=== PATIENT | female | born 1975 | race Caucasian/White ===

== ENCOUNTER 2024-06-24 13:35 | Emergency (ER) | payer OTHER ==
--- OUTSIDE RECORDS SUMMARY | 2024-06-24 13:39 | XMS REPORT | Continuity of Care Document ---
Author Name Unknown Address [address] [place] [address] Organization [facility] [place] Address [address] [place] [address] Care Team Providers Care Blackener Name Role Phone Jomar HILL, Jeanne Primary Care Physician [phone] SHAW COONEY Attending Clinician Unavailable SHAW COONEY Attending Clinician Unavailable ALEIDA ROBERTS Attending Clinician Unavailable ALEIDA ROBERTS Attending Clinician Unavailable Pcp-Lab Attending Clinician Unavailable [email or web address] Attending Clinician Unavaildeewy Gutiérrez NP, José Miguel Bacon Attending Clinician JACEY DAVENPORT M.D. Attending Clinician Unavaila CHATA Curiel APRN Attending Clinician Unavail MIRZA Haider M.D. Attending Clinician UnavailJOCELYN Harrington M.D. Attending Clinician Unavailable EDWARD LACKEY M.D. Attending Clinician Unavaildewey tejada [email or web address] Admitting Clinician Unavaildewey tejada Payers Payer Name Policy Type Policy Number Effective Date Expirati on Date Source [facility] [id number] 00:00:00 [facility] [id number] [id number] 00:00:00 Problems Condition Name Condition Details Condition Category Status Onset Date Resolution Date Last Treatment Date Treating Clinician Comments Source Hypothyroi dism due to Brittaney' s thyroiditi s Hypothyroi dism due to Brittaney' s thyroiditi s Disease Active 06-15 00:00: 00 [facility] Lumbar pain Lumbar pain Problem Active [facility] Pain of left femur Pain of left femur Problem Active [facility] Closed fracture of left ankle, initial encounter Closed fracture of left ankle, initial encounter Problem Active [facility] Closed fracture of shaft of left tibia and fibula, initial encounter Closed fracture of shaft of left tibia and fibula, initial encounter Problem Active [facility] Cervical pain Cervical pain Problem Active [facility] Ankle pain, left Ankle pain, left Problem Active [facility] Closed fracture of sacrum with routine healing, unspecifie d portion of sacrum, subsequent encounter Closed fracture of sacrum with routine healing, unspecifie d portion of sacrum, subsequent encounter Problem Active [facility] Closed fracture of spinous process of lumbar vertebra with routine healing, subsequent encounter Closed fracture of spinous process of lumbar vertebra with routine healing, subsequent encounter Problem Active [facility] Arthrodesi s status Arthrodesi s status Problem Active [facility] History of thyroid disease History of thyroid disease Problem Resolve d [facility] Allergies, Adverse Reactions, Alerts Allergy Name Allergy Type Status Severity Reaction(s) Onset Date Inactive Date Treating Clinician Comments Source NO KNOWN ALLERGIE S Drug Class Active [facility] Family History Family Member Diagnosis Comments Start Date Stop Date Sourc e Unknown Family Member Family history of hypertension Family History [facility] Social History Social Habit Start Date Stop Date Quantity Comments Source History of tobacco use Cigarette Smoker [facility] Exposure to SARS-CoV-2 (event) Not sure [facility] beverage intake 2023-07-16 00:00:00 2023-07-16 00:00:00 1.71 /d [facility] History of Social function 2023-07-16 00:00:00 2023-07-16 00:00:00 [facility] Cigarettes smoked current (pack per day) - Reported 2023-07-14 00:00:00 2023-07-14 00:00:00 [facility] Cigarette pack-years 2023-07-14 00:00:00 2023-07-14 00:00:00 [facility] Tobacco use and exposure 2023-07-14 00:00:00 2023-07-14 00:00:00 Smokeless tobacco non-user [facility] Alcohol intake 2018-01-06 00:00:00 2018-01-06 00:00:00 Current drinker of alcohol (finding) [facility] Alcohol Comment 2017-06-11 00:00:00 2017-06-11 00:00:00 4-5 x 3 times weekly [facility] Sex assigned at 1975 00:00:00 1975 00:00:00 [facility] Smoking Status Start Date Stop Date Source Ex-smoker (finding) MAYDA cash Smokes tobacco daily 2023-07-14 00:00:00 [facility] Medications Ordered Medication Name Filled Medication Name Start Date Stop Date Current Medication? Ordering Clinician Indication Dosage Frequency Signature (SIG) Comments Components Source levothyroxi ne 150 mcg tablet 2023-02 00:00: 00 Yes mcg Rick Tate TAKE 1 TABLET EVERY MORNING. 2022-02 00:00: 00 Yes 150 Rick Tate TAKE 1 TABLET AT BEDTIME. 2022-02 00:00: 00 Yes 10 Rick Tate TAKE 1 TABLET DAILY. 2022-02 00:00: 00 Yes 90 Rick Tate ketorolac (TORADOL) injection 30 mg 08-25 02:15: 00 08-25 02:23 :00 No 30mg 30 mg, Slow IV Push, ONCE, 1 dose, Queenie 08/24/20 at 2115, Routine
manager membership approving Restricted medication : JOSÉ MIGUEL GUTIÉRREZ [facility] acetaminoph en (TYLENOL) tablet 650 mg 08-25 02:15: 00 08-25 02:22 :00 No 650mg 650 mg, Oral, ONCE, 1 dose, Queenie 08/24/20 at 2115, GRZEGORZ [facility] cefTRIAXone (ROCEPHIN) 1,000 mg in NaCl 0.9% (NS) 50 mL MINI-BAG 08-25 02:15: 00 08-25 02:54 :00 No 1000mg 1,000 mg, IV Piggyback, ONCE, 1 dose, Queenie 08/24/20 at 2115, 50 mL
Reas on for Anti-Infec tive: Documented Infection< br>Documen razia Infection Site: Urine
D uration of Therapy: 7 days [facility] NaCl 0.9% (NS) bolus infusion 500 mL 08-25 01:15: 00 08-25 04:16 :00 No 500mL at 999 mL/hr, 500 mL, IV Infusion, ONCE, 1 dose, Queenie 08/24/20 at 2015, GRZEGORZ [facility] ondansetron (ZOFRAN ODT) 4 mg disintegrat ing tablet 08-24 00:00: 00 Yes [id number] 4mg Take 1 tablet by mouth every 8 (eight) hours as needed for Nausea and Vomiting (N/V). [facility] cefpodoxime 200 mg tablet 08-24 00:00: 00 09-01 04:59 :00 No [id number] 200mg Take 1 tablet by mouth 2 (two) times daily for 7 days. [facility] tramadol 50 mg tablet 05-09 00:00: 00 Yes 1mg Rick Tate cefixime 200 mg/5 mL oral suspension 05-09 00:00: 00 Yes 1mg/5 mL Rick Tate traMADol HCl - 50 MG Oral Tablet traMADol HCl - 50 MG Oral Tablet 11-09 00:00: 00 Yes JOAN ESPAÑA P.A. 1 Q6H TAKE 1 TABLET EVERY 6 HOURS PRN pain [facility] Acetaminoph en-Codeine #3 300-30 MG Oral Tablet Acetaminoph en-Codeine #3 300-30 MG Oral Tablet 10-24 00:00: 00 Yes JOAN ESPAÑA P.A. 1 Q6H TAKE 1 TABLET EVERY 6 HOURS PRN pain [facility] Acetaminoph en-Codeine #3 300-30 MG Oral Tablet Acetaminoph en-Codeine #3 300-30 MG Oral Tablet 09-28 00:00: 00 Yes JOAN ESPAÑA P.A. 1 Q6H TAKE 1 TABLET EVERY 6 HOURS PRN pain [facility] traMADOL (ULTRAM) 50 mg tablet 2017-02 00:00: 00 Yes 50mg Take 1 tablet by mouth every 6 (six) hours as needed for Pain (scale 4-6). [facility] cyclobenzap rine 5 mg tablet 2017-02 1-13 00:00: 00 08-24 00:00 :00 No 5mg Take 1 tablet by mouth 3 (three) times daily. [facility] FLUTICASONE 50 mcg/actuati on nasal spray 2017-02 0-25 00:00: 00 08-24 00:00 :00 No [id number] 2{spray } USE 2 SPRAYS IN EACH NOSTRIL DAILY. [facility] Thyroid, Pork, (ARMOUR THYROID) 120 mg tablet 06-15 00:00: 00 Yes [id number] Take 1 tab PO daily. [facility] azelastine 137 mcg (0.1 %) nasal spray 06-11 00:00: 00 08-24 00:00 :00 No [id number] 1{spray } Use 1 [place] in each nostril 2 (two) times daily. Use in each nostril as directed [facility] Thyroid 90 mg tablet 3-14 00:00: 00 Yes 1mg Rick Tate [facility] Thyroid 90 mg tablet 2-02 00:00: 00 Yes 1mg Rick Tate [employer] Thyroid 90 MG Oral Tablet [employer] Thyroid 90 MG Oral Tablet Yes [facility] Adderall TABS Adderall TABS Yes [facility] Vital Signs Vital Name Observation Time Observation Value Comments S ource Body temperature 2023-07-14 19:41:00 36.22 [facility] Body height 2023-07-14 19:41:00 157.5 cm [facility] Systolic blood pressure 2020-08-25 03:24:16 102 mm[Hg] [facility] Diastolic blood pressure 2020-08-25 03:24:16 64 mm[Hg] [facility] Heart rate 2020-08-25 03:24:16 71 /min [facility] Body temperature 2020-08-25 03:24:16 37.06 [facility] Respiratory rate 2020-08-25 03:24:16 19 /min [facility] Oxygen saturation in Arterial blood by Pulse oximetry 2020-08-25 03:24:16 99 /min [facility] Body height 2020-08-24 22:55:00 157.5 cm [facility] Body weight 2020-08-24 22:55:00 47.401 kg [facility] BMI 2020-08-24 22:55:00 19.11 kg/m2 [facility] BP Systolic 2024-04-06 10:51:00 110 mm[Hg] Step hen F [place] BP Diastolic 2024-04-06 10:51:00 88 mm[Hg] Valeriano phen F [place] Weight Measured 2024-04-06 10:51:00 139.00 pounds Rick F B[place] Height Measured 2024-04-06 10:51:00 62.00 inches Rick F [place] Body Temperature 2024-04-06 10:51:00 97.80 degrees Rick F [place] Heart Rate 2024-04-06 10:51:00 73.00 /min La en F [place] Respiratory Rate 2024-04-06 10:51:00 18.00 /min Rick F Bebeto BP Diastolic 2023-12-03 13:47:00 68 mm[Hg] Valeriano phen F [place] Weight Measured 2023-12-03 13:47:00 142.50 pounds Rick F Bebeto Height Measured 2023-12-03 13:47:00 62.00 inches Rick F Beb[place] Body Temperature 2023-12-03 13:47:00 97.90 degrees Rick F Bebeto Heart Rate 2023-12-03 13:47:00 73.00 /min La en F [place] Respiratory Rate 2023-12-03 13:47:00 17.00 /min Rick F Bebeto BP Systolic 2023-12-03 13:47:00 114 mm[Hg] Step hen F [place]eto Heart Rate 2023-12-02 17:10:00 72.00 /min La en F [place] Respiratory Rate 2023-12-02 17:10:00 16.00 /min Rick F Bebeto BP Systolic 2023-12-02 17:10:00 114 mm[Hg] Step hen F [place]eb[place] BP Diastolic 2023-12-02 17:10:00 68 mm[Hg] Valeriano phen F [place]ebeto Weight Measured 2023-12-02 17:10:00 142.60 pounds Rick F Bebeto Height Measured 2023-12-02 17:10:00 62.00 inches Rick F Bebeto Body Temperature 2023-12-02 17:10:00 98.20 degrees Rick F Bebeto BP Systolic 2022-12-13 16:05:00 132 mm[Hg] Step hen F Bebeto BP Diastolic 2022-12-13 16:05:00 85 mm[Hg] Valeriano phen F Bebeto Weight Measured 2022-12-13 16:05:00 126.40 pounds Rick F Bebeto Height Measured 2022-12-13 16:05:00 62.00 inches Rick F Bebeto Body Temperature 2022-12-13 16:05:00 98.20 degrees Rick F Bebeto Heart Rate 2022-12-13 16:05:00 75.00 /min La en F Bebeto Respiratory Rate 2022-12-13 16:05:00 19.00 /min Rick F Bebeto BP Systolic 2020-05-09 11:17:00 105 mm[Hg] Step hen F Bebeto BP Diastolic 2020-05-09 11:17:00 74 mm[Hg] Valeriano phen F Bebeto Weight Measured 2020-05-09 11:17:00 109.80 pounds Rick F Bebeto Height Measured 2020-05-09 11:17:00 62.00 inches Rick F Bebeto Body Temperature 2020-05-09 11:17:00 Rick F Bebeto Heart Rate 2020-05-09 11:17:00 83.00 /min La en F Bebeto Respiratory Rate 2020-05-09 11:17:00 17.00 /min Rick F Bebeto Body height 2019-10-27 11:22:00 62 [in_us] [facility] Weight 2019-10-27 11:22:00 114 [lb_av] [facility] Body mass index (BMI) [Ratio] 2019-10-27 11:22:00 20.85 kg/m2 [facility] BP Systolic 2017-03-18 15:23:00 127 mm[Hg] Step hen F Bebeto BP Diastolic 2017-03-18 15:23:00 73 mm[Hg] Valeriano phen F Bebeto Weight Measured 2017-03-18 15:23:00 117.60 pounds Rick Tate Height Measured 2017-03-18 15:23:00 62.00 inches Rick Tate Body Temperature 2017-03-18 15:23:00 98.60 degrees Rick Tate Heart Rate 2017-03-18 15:23:00 98.00 /min La Tate Respiratory Rate 2017-03-18 15:23:00 Rick Tate Procedures Procedure Date / Time Performed Performing Clinician Source ASPIRATE OR ABSCESS CULTURE(AEROBIC/ANAEROB IC) 2023-07-14 22:33:00 Aleida Roberts [facility] FUNGUS (ROUTINE) CULTURE 2023-07-14 22:33:00 Aleida Roberts [facility] XR SACRUM AND COCCYX 2023-07-14 20:13:57 Violeta Roberts [facility] BASIC METABOLIC PANEL (NA, K, CL, CO2, GLUCOSE, BUN, CREATININE, CA) 2020-08-25 01:39:00 José Miguel Gutiérrez [facility] CBC WITH DIFF 2020-08-25 01:39:00 José Miguel Gutiérrez [facility] URINALYSIS 2020-08-24 23:21:00 José Miguel Gutiérrez [facility] NOTICE OF PRIVACY PRACTICES 2020-08-24 22:49:02 Doctor Unassigned, [place] [facility] CONSENT/REFUSAL FOR DIAGNOSIS AND TREATMENT 2020-08-24 22:48:26 Doctor Unassigned, [place] [facility] [U] XRAY PELVIS MIN 3 VWS [id number] 2019-11-16 00:00:00 [facility] [U] XRAY SPINE LUMBOSACRAL 2 OR 3 VWS [id number] 2019-10-27 00:00:00 [facility] [U] XRAY ANKLE MIN 3 VWS LEFT [id number] 2019-10-27 00:00:00 [facility] [U] XRAY SPINE CERVICAL 2 OR 3 VWS [id number] 2019-10-27 00:00:00 [facility] [U] XRAY PELVIS MIN 3 VWS [id number] 2019-10-21 00:00:00 [facility] [U] XRAY FEMUR 2 VWS LEFT [id number] 2019-10-18 00:00:00 [facility] [U] XRAY TIBIA FIBULA 2 VWS LEFT [id number] 2019-10-18 00:00:00 [facility] Post Op Promis 29 Survey 2019-10-05 00:00:00 [facility] Post Op Promis 29 Survey 2019-09-30 00:00:00 [facility] [U] XRAY SPINE LUMBOSACRAL 2 OR 3 VWS [id number] 2019-09-29 00:00:00 [facility] [U] XRAY SPINE CERVICAL 2 OR 3 VWS [id number] 2019-09-29 00:00:00 [facility] Post Op Promis 29 Survey 2019-09-24 00:00:00 [facility] Post Op Promis 29 Survey 2019-09-23 00:00:00 [facility] XRAY Spine lumbar AP lateral [id number] 2019-09-22 00:00:00 [facility] History of Hysterectomy [facility] Encounters Start Date/Time End Date/Time Encounter Type Admission Type Attending Clinicians Care Facility Care Department Encounter ID Source 2020-12-25 05:28:30 Emergency [facility] [id number] [facility] 2024-04-06 10:36:03 2024-04-06 10:36:03 Outpatient [facility] [id number] Rick Tate 2024-04-06 00:00:00 2024-04-06 00:00:00 Outpatient Visit [facility] [id number] Rick Tate 2023-12-18 10:37:34 2023-12-18 10:37:34 Outpatient [facility] [id number] Rick Tate 2023-12-08 15:40:50 2023-12-08 15:40:50 Outpatient [facility] [id number] Rick Tate 2023-12-03 13:39:00 2023-12-03 13:39:00 Outpatient [facility] [id number] Rick Tate 2023-12-02 17:06:14 2023-12-02 17:06:14 Outpatient [facility] SFA [id number] Rick Tate 2023-12-02 00:00:00 2023-12-02 00:00:00 Outpatient Visit [facility] [id number] Rick Tate 2023-09-03 00:00:00 2023-09-03 00:00:00 Outpatient Marce ALEIDA ROBERTS [facility]LEIDA [facility] [id number] [facility] 2023-08-07 10:25:00 2023-08-07 10:25:00 Outpatient Marce ALEIDA ROBERTS ALEIDA [facility] [id number] [facility] 2023-07-22 00:00:00 2023-07-22 10:25:36 Telephone AmberAleida [facility] [id number] [id number] [facility] 2023-07-16 00:00:00 2023-07-16 16:38:34 [facility] [id number] [id number] [id number] [facility] 2023-07-14 15:01:10 2023-07-14 23:59:00 Outpatient Marce ALEIDA ROBERTS ALEIDA [facility] [id number] [facility] 2023-07-14 15:01:10 2023-07-14 23:59:00 Hospital Encounter AmberAleida gonzalez [facility] [id number] [id number] [id number] [id number] [facility] 2023-07-14 16:15:00 2023-07-14 16:30:00 Operative Supervisor [facility] [id number] [id number] [id number] [id number] [facility] 2023-07-14 13:20:00 2023-07-14 16:12:08 Office Visit Aleida Roberts [facility] 1..840.114 350.1.13.10 [id number] [id number] [facility] 2023-07-14 13:20:00 2023-07-14 13:20:00 [facility] [id number] 2023-07-14 13:20:00 2023-07-14 13:20:00 Outpatient ALEIDA GRUBBS [facility] [id number] [facility] 2022-12-26 16:21:32 2022-12-26 16:21:32 Outpatient [facility] [id number] Rick Keira Bebeto 2022-12-24 00:00:00 2022-12-24 00:00:00 Outpatient GC_GCBZW_Ka diyala_S PRIV PRIV [id number] [facility] 2022-12-23 00:00:00 2022-12-23 00:00:00 Outpatient GC_GCBZW_Ka diyala_S PRIV PRIV [id number] [facility] 2022-12-13 15:55:53 2022-12-13 15:55:53 Outpatient [facility] [id number] Rick Keira Bebeto 2022-12-11 13:12:11 2022-12-11 13:12:11 Outpatient [facility] [id number] Rick Keira Bebeto 2020-08-24 17:56:00 2020-08-24 22:34:00 Emergency José Miguel Gutiérrez [facility] 1..840.114 [id number] [id number] [id number] [facility] 2019-11-24 07:45:00 2019-11-24 07:45:00 Appointmen t; JACEY DAVENPORT M.D. PRASARN, MARK, M.D. [facility] [id number] [place] [facility] 2019-10-27 10:00:00 2019-10-27 10:00:00 Appointmen t; CHATA MENA APRN COCKERHAM, AMY, APRN [facility] [id number] [facility] 2019-10-27 09:45:00 2019-10-27 09:45:00 Appointmen t; MIRZA URIAS M.D. CHOO, ANDREW, M.D. [facility] Orthopedics Trauma [facility] [id number] [place] [facility] 2019-10-27 07:45:00 2019-10-27 07:45:00 Appointmen t; JACEY DAVENPORT M.D. PRASARN, MARK, M.D. [facility] Orthopedics at [facility] [id number] [facility] 2019-09-29 10:00:00 2019-09-29 10:00:00 Appointmen t; JACEY DAVENPORT M.D. PRASARN, MARK, M.D. [facility] Orthopedics at [facility] [id number] [facility] 2019-09-29 08:30:00 2019-09-29 08:30:00 Appointmen t; CHATA MENA APRN COCKERHAM, AMY, APRN [facility] [id number] [facility] 2019-09-29 07:45:00 2019-09-29 07:45:00 Appointmen t; MIRZA URIAS M.D. CHOO, ANDREW, M.D. [facility] Orthopedics Trauma [facility] [id number] [facility] 2019-09-09 07:00:00 2019-09-09 07:00:00 Appointmen t; JOCELYN SYED M.D. MUNZ, JOHN, M.D. [facility] [id number] [facility] 2019-08-31 08:00:00 2019-08-31 08:00:00 Appointmen t; MIRZA URIAS M.D. CHOO, ANDREW, M.D. [facility] [id number] [facility] 2019-08-30 07:00:00 2019-08-30 07:00:00 Appointmen t; EDWARD LACKEY M.D. EDWARD LACKEY M.D. [facility]TP [id number] [facility] 2019-08-29 07:00:00 2019-08-29 07:00:00 Appointmen ronna; MIRZA URIAS M.D. CHOO, ANDREW, M.D. [facility] [id number] [facility] 2015-10-11 11:30:00 2015-10-11 11:30:00 [id number] Daniel Escobar Results Test Description Test Time Test Comments Results Result Co mments Source Rick Crockett [place]IP[place] PANEL [ADDED]2023-12-04 00:00:00* Test Item Value Reference Range Interpretation Comme nts CHOLESTEROL (test code = 2210) 230 MG/DL TRIGLYCERIDES (test code = 2232) 131 MG/DL HDL CHOLESTEROL (test code = 2220) 46 MG/DL CALC LDL CHOL (test code = 2237) 158 MG/DL RISK RATIO LDL/HDL (test cod e = 2238) 3.43 RATIO Rick TateCOMPREHENSIVE METABOLIC PANEL [ADDED]2023-12-04 00:00:00* Test Item Value Reference Range Interpretation Comme nts GLUCOSE (test code = 2217) 111 MG/DL BUN (test code = 2208) 12 MG/DL CREATININE (test code = 2214) 0.66 MG/DL eGFR (2020 CKD-EPI) (test code = 50903) 107 ML/MIN/1.73 CALC BUN/CREAT (test code = 2235) 18 RATIO SODIUM (test code = 2231) 141 MEQ/L POTASSIUM (test code = 2228) 5.1 MEQ/L CHLORIDE (test code = 2215) 102 MEQ/L CARBON DIOXIDE (test code = 2206) 28 MEQ/L CALCIUM (test code = 2209) 9.9 MG/DL PROTEIN, TOTAL (test code = 2229) 7.7 G/DL ALBUMIN (test code = 2201) 4.1 G/DL CALC GLOBULIN (test code = 2240) 3.6 G/DL CALC A/G RATIO (test code = 2234) 1.1 RATIO BILIRUBIN, TOTAL (test code = 2207) <0.2 MG/DL ALKALINE PHOSPHATASE (test code = 2204) 134 U/L AST (test code = 2218) 81 U/L ALT (test code = 2219) 102 U/L Rick Rodas, THIRD [id number] 00:00:00* Test Item Value Reference Range Interpretation Comme nts TSH, THIRD GENERATION (test code = 2821) 0.042 UIU/ML Rick TateLIPID PANEL [ADDED]2023-12-04 00:00:00* Test Item Value Reference Range Interpretation Comme nts CHOLESTEROL (test code = 2210) 230 MG/DL TRIGLYCERIDES (test code = 2232) 131 MG/DL HDL CHOLESTEROL (test code = 2220) 46 MG/DL CALC LDL CHOL (test code = 2237) 158 MG/DL RISK RATIO LDL/HDL (test cod e = 2238) 3.43 RATIO Rick TateCOMPREHENSIVE METABOLIC PANEL [ADDED]2023-12-04 00:00:00* Test Item Value Reference Range Interpretation Comme nts GLUCOSE (test code = 2217) 111 MG/DL BUN (test code = 2208) 12 MG/DL CREATININE (test code = 2214) 0.66 MG/DL eGFR (2020 CKD-EPI) (test code = 31061) 107 ML/MIN/1.73 CALC BUN/CREAT (test code = 2235) 18 RATIO SODIUM (test code = 2231) 141 MEQ/L POTASSIUM (test code = 2228) 5.1 MEQ/L CHLORIDE (test code = 2215) 102 MEQ/L CARBON DIOXIDE (test code = 2206) 28 MEQ/L CALCIUM (test code = 2209) 9.9 MG/DL PROTEIN, TOTAL (test code = 2229) 7.7 G/DL ALBUMIN (test code = 2201) 4.1 G/DL CALC GLOBULIN (test code = 2240) 3.6 G/DL CALC A/G RATIO (test code = 2234) 1.1 RATIO BILIRUBIN, TOTAL (test code = 2207) <0.2 MG/DL ALKALINE PHOSPHATASE (test code = 2204) 134 U/L AST (test code = 2218) 81 U/L ALT (test code = 2219) 102 U/L Rick TateXR SACRUM AND [id number] 20:45:22XR SACRUM AND COCCYX HISTORY: Female 48 years h/o hardware placement, has drainage and openwound on the scar COMPARISON: None FINDINGS: Plain radiographs are relatively insensitive for the evaluationof softtissue abnormalities. Postsurgical changes of L4-L5 posterior spinal fusion and SI jointankylosis are noted. Perihardware lucencies are seen about the right [id number] about the tips of the screws spanning both SI joints. There also age indeterminate fractures of the right inferior and superiorpubic rami.[facility], THIRD GENERATION 2022-12-16 01:24:28* Test Item Value Reference Range Interpretation Comme nts TSH, THIRD GENERATION (test code = 2821) >100.000 UIU/ML 0.400-4.100 H UNLESS OTHERWISE INDICATED, ALL TESTING PERFORMED AT [facility] [address] [place] [address] PLANT CHANGER: BAM INGRAM M.D. CLIA NUMBER [id number] [place] [id number] LIPID [id number] 01:23:07* Test Item Value Reference Range Interpretation Comme nts CHOLESTEROL (test code = 2210) 291 MG/DL <200 H TRIGLYCERIDES (test code = 2232) 189 MG/DL <150 H HDL CHOLESTEROL (test code = 2220) 56 MG/DL >39 CALC LDL CHOL (test code = 2237) 199 MG/DL <100 H NOTE: CALCULATED LDL IS BASED ON CESILIA-RETANA METHOD WHICHINCLUDES ADJUSTABLE TRIGLYCERIDE:VLDL CHOLESTEROL RATIO.THIS FACTOR VARIES BY MEASURED TRIGLYCERIDE AND NON-HDLCHOLESTEROL CONCENTRATIONS WITH INCREASED CALCULATED LDL SEENIN HIGHER TRIGLYCERIDE OR LOWER NON-HDL SPECIMENS. FOR MOREINFORMATION, SEE CLIENT ANNOUNCEMENT AT [email or web address] RISK RATIO LDL/HDL (test code = 2238) 3.55 RATIO <3.22 H COMPREHENSIVE METABOLIC [id number] 01:23:07* Test Item Value Reference Range Interpretation Comme nts GLUCOSE (test code = 2217) 94 MG/DL 70-99 BUN (test code = 2208) 14 MG/DL 6-20 CREATININE (test code = 2214) 0.81 MG/DL 0.60-1.30 eGFR (2020 CKD-EPI) (test co de = 52370) 89 ML/MIN/1.73 >60 CALC BUN/CREAT (test code = 2235) 17 RATIO 6-28 SODIUM (test code = 2231) 138 MEQ/L 133-146 POTASSIUM (test code = 2228) 4.2 MEQ/L 3.5-5.4 CHLORIDE (test code = 2215) 99 MEQ/L 95-107 CARBON DIOXIDE (test code = 2206) 27 MEQ/L 19-31 CALCIUM (test code = 2209) 9.7 MG/DL 8.5-10.5 PROTEIN, TOTAL (test code = 2229) 8.4 G/DL 6.1-8.3 H ALBUMIN (test code = 2201) 4.7 G/DL 3.5-5.2 CALC GLOBULIN (test code = 2240) 3.7 G/DL 1.9-3.7 CALC A/G RATIO (test code = 2234) 1.3 RATIO 1.0-2.6 BILIRUBIN, TOTAL (test code = 2207) <0.2 MG/DL <=1.2 ALKALINE PHOSPHATASE (test code = 2204) 103 U/L 40-125 AST (test code = 2218) 19 U/L 9-40 ALT (test code = 2219) 27 U/L 5-40 LIPID [id number] 00:00:00* Test Item Value Reference Range Interpretation Comme nts CHOLESTEROL (test code = 2210) 291 MG/DL TRIGLYCERIDES (test code = 2232) 189 MG/DL HDL CHOLESTEROL (test code = 2220) 56 MG/DL CALC LDL CHOL (test code = 2237) 199 MG/DL RISK RATIO LDL/HDL (test cod e = 2238) 3.55 RATIO Rick F AustinCOMPREHENSIVE METABOLIC [id number] 00:00:00* Test Item Value Reference Range Interpretation Comme nts GLUCOSE (test code = 2217) 94 MG/DL BUN (test code = 2208) 14 MG/DL CREATININE (test code = 2214) 0.81 MG/DL eGFR (2020 CKD-EPI) (test co de = 46127) 89 ML/MIN/1.73 CALC BUN/CREAT (test code = 2235) 17 RATIO SODIUM (test code = 2231) 138 MEQ/L POTASSIUM (test code = 2228) 4.2 MEQ/L CHLORIDE (test code = 2215) 99 MEQ/L CARBON DIOXIDE (test code = 2206) 27 MEQ/L CALCIUM (test code = 2209) 9.7 MG/DL PROTEIN, TOTAL (test code = 2229) 8.4 G/DL ALBUMIN (test code = 2201) 4.7 G/DL CALC GLOBULIN (test code = 2240) 3.7 G/DL CALC A/G RATIO (test code = 2234) 1.3 RATIO BILIRUBIN, TOTAL (test code = 2207) <0.2 MG/DL ALKALINE PHOSPHATASE (test code = 2204) 103 U/L AST (test code = 2218) 19 U/L ALT (test code = 2219) 27 U/L Rick TateTSH, THIRD [id number] 00:00:00* Test Item Value Reference Range Interpretation Comme nts TSH, THIRD GENERATION (test code = 2821) >100.000 UIU/ML Rick TateLIPID [id number] 00:00:00* Test Item Value Reference Range Interpretation Comme nts CHOLESTEROL (test code = 2210) 291 MG/DL TRIGLYCERIDES (test code = 2232) 189 MG/DL HDL CHOLESTEROL (test code = 2220) 56 MG/DL CALC LDL CHOL (test code = 2237) 199 MG/DL RISK RATIO LDL/HDL (test cod e = 2238) 3.55 RATIO Rick TateCOMPREHENSIVE METABOLIC [id number] 00:00:00* Test Item Value Reference Range Interpretation Comme nts GLUCOSE (test code = 2217) 94 MG/DL BUN (test code = 2208) 14 MG/DL CREATININE (test code = 2214) 0.81 MG/DL eGFR (2020 CKD-EPI) (test co de = 27445) 89 ML/MIN/1.73 CALC BUN/CREAT (test code = 2235) 17 RATIO SODIUM (test code = 2231) 138 MEQ/L POTASSIUM (test code = 2228) 4.2 MEQ/L CHLORIDE (test code = 2215) 99 MEQ/L CARBON DIOXIDE (test code = 2206) 27 MEQ/L CALCIUM (test code = 2209) 9.7 MG/DL PROTEIN, TOTAL (test code = 2229) 8.4 G/DL ALBUMIN (test code = 2201) 4.7 G/DL CALC GLOBULIN (test code = 2240) 3.7 G/DL CALC A/G RATIO (test code = 2234) 1.3 RATIO BILIRUBIN, TOTAL (test code = 2207) <0.2 MG/DL ALKALINE PHOSPHATASE (test code = 2204) 103 U/L AST (test code = 2218) 19 U/L ALT (test code = 2219) 27 U/L Rick Rodas, THIRD [id number] 00:00:00* Test Item Value Reference Range Interpretation Comme nts TSH, THIRD GENERATION (test code = 2821) >100.000 UIU/ML Rick TateBasic Metabolic Panel (NA, K, CL, CO2, GLUCOSE, BUN, CREATININE, CA)2020-08-25 02:09:13* Test Item Value Reference Range Interpretation Comme nts NA (test code = 6611168300) 135 mmol/L 135-145 K (test code = 9200860036) 3.3 mmol/L 3.5-5.0 L CL (test code = 0349767334) 99 mmol/L 98-108 CO2 TOTAL (test code = 3801756327) 24 mmol/L 23-31 AGAP (test code = 4794392464) 2-16 BUN (test code = 0643694233) 11 mg/dL 7-23 GLUCOSE (test code = 2680339135) 175 mg/dL 70-110 H CREATININE (test code = 3378297803) 0.65 mg/dL 0.50-1.04 CALCIUM (test code = 2125529374) 9.7 mg/dL 8.6-10.6 eGFR (test code = 3762915562) mL/min/1.73m2 BRANDON (test code = BRANDON) Association of Glomerular Filtration Rate (GFR) and Staging of Kidney Disease* + --+ --+ ------+| GFR (mL/min/1.73 m2) ?| With Kidney Damage ?| ?Without Kidney Damage+ --------+ --------+ +| ?>90 ?| ?Stage one ?| ? Normal ?+ ---+ ---+ -------+| ?60-89 ?| ?Stage two ?| ? Decreased GFR ? + --+ --+ ------+| ?30-59 ?| ?Stage three ?| ? Stage three ? + --+ --+ ------+| ?15-29 ?| ?Stage four ? | ? Stage four ?+ ---+ ---+ -------+| ?<15 (or dialysis) ? ?| ?Stage five ? | ? Stage five ?+ ---+ ---+ -------+ *Each stage assumes the associated GFR level has been in effect for at least three months. ?Stages 1 to 5, with or without kidney disease, indicate chronic kidney disease. Notes: Determination of stages one and two (with eGFR >59mL/min/1.73 m2) requires estimation of kidney damage for at least three months as defined by structural or functional abnormalities of the kidney, manifested by either:Pathological abnormalities or Markers of kidney damage (including abnormalities in the composition of the blood or urine or abnormalities in imaging tests). Lab Interpretation (test code = 30338-5) Abnormal [facility] with [id number] 01:59:35* Test Item Value Reference Range Interpretation Comme nts WBC (test code = 6690-2) See_Comment [[employer] Education] The system which generated this result transmitted reference range: 4.30 - 11.10 10*3/?L. The reference range was not used to interpret this result as normal/abnormal. RBC (test code = 789-8) See_Comment L [[employer] Education] The system which generated this result transmitted reference range: 3.93 - 5.25 10*6/?L. The reference range was not used to interpret this result as normal/abnormal. HGB (test code = 718-7) 10.8 g/dL 11.6-15.0 L HCT (test code = 4544-3) 31.9 % 35.7-45.2 L MCV (test code = 787-2) 92.5 fL 80.6-95.5 MCH (test code = 785-6) 31.3 pg 25.9-32.8 MCHC (test code = 786-4) 33.9 g/dL 31.6-35.1 RDW-SD (test code = 99011-9) 43.5 fL 39.0-49.9 RDW-CV (test code = 788-0) 12.8 % 12.0-15.5 PLT (test code = 777-3) See_Comment H [Automated messa ge] The system which generated this result transmitted reference range: 166 - 358 10*3/?L. The reference range was not used to interpret this result as normal/abnormal. MPV (test code = 57356-4) 9.8 fL 9.5-12.9 NRBC/100 WBC (test code = 8058448659) See_Comment [Automated [employer]axis ssage] The system which generated this result transmitted reference range: 0.0 - 10.0 /100 WBCs. The reference range was not used to interpret this result as normal/abnormal. NRBC x10^3 (test code = 6442389798) <0.01 See_Comment [Automated messa ge] The system which generated this result transmitted reference range: 10*3/?L. The reference range was not used to interpret this result as normal/abnormal. GRAN MAT (NEUT) % (test code = 770-8) 78.0 % IMM GRAN % (test code = 7425201740) 1.40 % LYMPH % (test code = 736-9) 9.9 % MONO % (test code = 5905-5) 10.0 % EOS % (test code = 713-8) 0.3 % BASO % (test code = 706-2) 0.4 % GRAN MAT x10^3(ANC) (test code = 8389528347) 7.78 10*3/uL 1.88-7.09 H IMM GRAN x10^3 (test code = 0541665953) 0.14 10*3/uL 0.00-0.06 H LYMPH x10^3 (test code = 731-0) 0.99 10*3/uL 1.32-3.29 L MONO x10^3 (test code = 742-7) 1.00 10*3/uL 0.33-0.92 H EOS x10^3 (test code = 711-2) 0.03 10*3/uL 0.03-0.39 BASO x10^3 (test code = 704-7) 0.04 10*3/uL 0.01-0.07 Lab Interpretation (test code = 79464-8) [facility]52:42* Test Item Value Reference Range Interpretation Comme nts APPEARANCE (test code = 3351647611) Clear Clear COLOR (test code = 7170259494) Yellow Yellow PH (test code = 7034807689) 4.8-8.0 SP GRAVITY (test code = 3567866487) 1.003-1.030 GLU U QUAL (test code = 8470070875) Normal Normal BLOOD (test code = 1442325753) Negative Negative KETONES (test code = 5613557015) Negative Negative PROTEIN (test code = 2887-8) Negative Negative UROBILIN (test code = 4463514416) Normal Normal BILIRUBIN (test code = 9728229981) Negative Negative NITRITE (test code = 2459544909) Negative Negative LEUK CHUCK (test code = 9629302439) 75/uL Negative A RBC/HPF (test code = 7202033561) See_Comment [Automated Authernativea ge] The system which generated this result transmitted reference range: 0 - 3 HPF. The reference range was not used to interpret this result as normal/abnormal. WBC/HPF (test code = 8225994838) See_Comment H [Automated Authernativea ge] The system which generated this result transmitted reference range: 0 - 5 HPF. The reference range was not used to interpret this result as normal/abnormal. BACTERIA (test code = 5970008626) Negative Negative MUCOUS (test code = 0695759786) Slight Negative LPF A SQ EPITH (test code = 3722513889) HPF Lab Interpretation (test code = 90951-1) [facility]normal [facility] [id number] 00:00:00* Test Item Value Reference Range Interpretation Comme nts GLUCOSE (test code = 2217) 106 MG/DL BUN (test code = 2208) 15 MG/DL CREATININE (test code = 2214) 0.48 MG/DL eGFR AMER. (test cod e = 08889) 135 ML/MIN/1.73 eGFR NON- AMER. (test code = 13481) 117 ML/MIN/1.73 CALC BUN/CREAT (test code = 2235) 31 RATIO SODIUM (test code = 2231) 134 MEQ/L POTASSIUM (test code = 2228) 5.4 MEQ/L CHLORIDE (test code = 2215) 96 MEQ/L CARBON DIOXIDE (test code = 2206) 28 MEQ/L CALCIUM (test code = 2209) 9.9 MG/DL PROTEIN, TOTAL (test code = 2229) 7.6 G/DL ALBUMIN (test code = 2201) 3.6 G/DL CALC GLOBULIN (test code = 2240) 4.0 G/DL CALC A/G RATIO (test code = 2234) 0.9 RATIO BILIRUBIN, TOTAL (test code = 2207) <0.2 MG/DL ALKALINE PHOSPHATASE (test code = 2204) 385 U/L AST (test code = 2218) 92 U/L ALT (test code = 2219) 103 U/L Rick TateCOMPREHENSIVE METABOLIC [id number] 00:00:00* Test Item Value Reference Range Interpretation Comme nts GLUCOSE (test code = 2217) 106 MG/DL BUN (test code = 2208) 15 MG/DL CREATININE (test code = 2214) 0.48 MG/DL eGFR AMER. (test cod e = 04437) 135 ML/MIN/1.73 eGFR NON- AMER. (test code = 45308) 117 ML/MIN/1.73 CALC BUN/CREAT (test code = 2235) 31 RATIO SODIUM (test code = 2231) 134 MEQ/L POTASSIUM (test code = 2228) 5.4 MEQ/L CHLORIDE (test code = 2215) 96 MEQ/L CARBON DIOXIDE (test code = 2206) 28 MEQ/L CALCIUM (test code = 2209) 9.9 MG/DL PROTEIN, TOTAL (test code = 2229) 7.6 G/DL ALBUMIN (test code = 2201) 3.6 G/DL CALC GLOBULIN (test code = 2240) 4.0 G/DL CALC A/G RATIO (test code = 2234) 0.9 RATIO BILIRUBIN, TOTAL (test code = 2207) <0.2 MG/DL ALKALINE PHOSPHATASE (test code = 2204) 385 U/L AST (test code = 2218) 92 U/L ALT (test code = 2219) 103 U/L Rick Tate[U] XRAY ANKLE MIN 3 VWS LEFT [id number] 08:09:00Images acquired, not reported on this accession number.[facility][U] XRAY FEMUR 2 VWS LEFT [id number] 08:09:00Images acquired, not reported on this accession number.[facility][U] XRAY PELVIS MIN 3 VWS [id number] 08:09:00Images acquired, not reported on this accession number.[facility][U] XRAY TIBIA FIBULA 2 VWS LEFT [id number] 08:09:00Images acquired, not reported on this accession number.[facility][U] XRAY TIBIA FIBULA 2 VWS LEFT [id number] 07:55:00Images acquired, not reported on this accession number.[facility][U] XRAY KNEE 1 OR 2 VWS LEFT [id number] 07:51:00Images acquired, not reported on this accession number.[facility][U] XRAY ANKLE MIN 3 VWS LEFT [id number] 2019-09-29 07:51:00Images acquired, not reported on this accession number.[facility][U] XRAY FEMUR 2 VWS LEFT [id number] 07:50:00Images acquired, not reported on this accession number.[facility][U] XRAY PELVIS MIN 3 VWS [id number] 2019-09-29 07:37:00Images acquired, not reported on this accession number.KS [id number] (COVID-19) by RT-PCR (HIGH RISK)2019-08-30 00:00:00* Test Item Value Reference Range Interpretation Comme nts SARS-CoV-2 INTERPRETATION (test code = 87154) NEGATIVE SOURCE (test code = 47468) NASOPHARYNGEAL Rick F [id number] (COVID-19) by RT-PCR (HIGH RISK)2019-08-30 00:00:00* Test Item Value Reference Range Interpretation Comme nts SARS-CoV-2 INTERPRETATION (test code = 28291) NEGATIVE SOURCE (test code = 25515) NASOPHARYNGEAL Rick F AustinTHYROID II PROFILE (T3U, T4, T7, TSH)2017-03-19 00:00:00* Test Item Value Reference Range Interpretation Comme nts T3 UPTAKE (test code = 2817) 30.5 % T4 (THYROXINE) (test code = 2819) 8.1 UG/DL CALCULATED T7 (FTI) (test co de = 2820) 2.47 TSH (test code = 2821) 0.140 UIU/ML Rick F AustinTHYROID II PROFILE (T3U, T4, T7, TSH)2017-03-19 00:00:00* Test Item Value Reference Range Interpretation Comme nts T3 UPTAKE (test code = 2817) 30.5 % T4 (THYROXINE) (test code = 2819) 8.1 UG/DL CALCULATED T7 (FTI) (test co de = 2820) 2.47 TSH (test code = 2821) 0.140 UIU/ML Rick Tate Notes Date/Time Note Provider Source Rick Davis [facility]2024-10-08 00:00:00 Rick Davis [facility]2024-05-28 10:24:42 Faxed culture and lab results to [facility] @ [phone]. [id number] 16:15:00 Images from the original note were not included. Venipuncture collection performed by clean technique on the left anticubitus. Total of 1 attempts were made. Slight pressure and a bandage/dressing were applied to the site(s). The patient experienced no complications. The following specimens were processed according to instructions and sent to [facility] laboratories per lab order on 07/14/2023 : LT BLUE SST RED LAV 1 PPT DK GREEN (LiHep) DK GREEN (SodH) FR[place] DK BLUE (K2) DK BLUE (S) ACD Blood Culture NIPT/NTD [id number] 13:20:00 Addended by: ALEIDA ROBERTS on: 07/17/2023 04:23 PM Modules accepted: Orders T [facility]"
[2024-06-24] MEDS ORDERED: HYDROCODONE/APAP 7.5/325 MG TAB ONE (14:43)
--- NOTE | 2024-06-24 15:22 | RAD REPORT ---
EXAMINATION: XR LEFT FEMUR CLINICAL INDICATION: . fall;Pain TECHNIQUE: Multiple views of the left femur were obtained. COMPARISON: No prior exam. FINDINGS: Intramedullary ashkan is seen with multiple screws distal femur. Pelvic hardware is present sp anning both sacroiliac joints. Mild to moderate soft tissue swelling is seen anterior aspect of the knee. No acute fracture evident. The lateral view is suboptimal.
--- NOTE | 2024-06-24 15:23 | RAD REPORT ---
EXAMINATION: XR LEFT TIBIA AND FIBULA CLINICAL INDICATION: . fall;Pain TECHNIQUE:Two view radiograph of the left tibia and fibula were obtained. COMPARISON: No prior exam. FINDINGS: Extensive hardware is seen in the tibia and fibula as well as the distal femur. No hardware loosening evident. No fracture seen. Soft tissue swelling seen anterior aspect of the knee.
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
--- NOTE | 2024-06-24 15:47 | ER ---
Nurse's Notes [facility] Name: Maricruz Sewell Age: 49 yrs Sex: Female : 1975 Arrival Date: 06/24/2024 Time: 13:35 Bed DX3 Private MD: Diagnosis: Contusion of left knee;Fall on same level from slipping, tripping and stumbling with subsequent striking against object Presentation: 06/24 14:45 Chief complaint: Patient states: Left leg pain post fall. Coronavirus screen: At this jl7 time, the client does not indicate any symptoms associated with coronavirus-19. Ebola Screen: No symptoms or risks identified at this time. Initial Sepsis Screen: Does the patient meet any 2 criteria? No. Patient's initial sepsis screen is negative. Does the patient have a suspected source of infection? No. Patient's initial sepsis screen is negative. Risk Assessment: Do you want to hurt yourself or someone else? Patient reports no desire to harm self or others. Onset of symptoms was June 24, 2024 at 11:00. 14:45 Method Of Arrival: Ambulatory [facility] 14:45 Acuity: BYRON 4 jl7 Triage Assessment: 14:47 General: Appears in no apparent distress. uncomfortable, Behavior is calm, cooperative, jl7 appropriate for age. Pain: Complains of pain in left leg Pain currently is 7 out of 10 on a pain scale. Musculoskeletal: Reports Pain is 7 out of 10 on a pain scale. 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 - Infectious Disease History:: Denies. - Social history:: Smoking status: Reported history of juuling and/or vaping. Screenin:29 Abuse screen: Denies threats or abuse. Denies injuries from another. Nutritional ss screening: No deficits noted. Tuberculosis screening: Never had TB. Assessment: 17:29 General: Appears in no apparent distress. comfortable, Behavior is calm, cooperative. ss Pain: Complains of pain in left knee. Neuro: Level of Consciousness is awake, alert, obeys commands. Respiratory: Airway is patent Respiratory effort is even, unlabored, Respiratory pattern is regular, symmetrical. Derm: Skin is intact, is healthy with good turgor, Skin is pink, warm \T\ dry. normal. Vital Signs: 14:45 BP 115 / 75; Pulse 73; Resp 15; Pulse Ox 100% ; Weight 61.23 kg; Height 5 ft. 2 in. ; jl7 Pain 7/10; 14:45 Body Mass Index 24.69 (61.23 kg, 157.48 cm) jl7 14:45 Pain Scale: Adult 7 ED Course: 13:40 Patient arrived in ED. im 13:41 Riccardo Kidd PA is PHCP. cp 13:41 Riccardo Arreola MD is Attending Physician. cp 14:47 Triage completed. jl7 14:47 Arm band placed on right wrist. jl7 15:19 XRAY Femur LEFT In Process Unspecified. EDMS 15:19 XRAY Tib Fib LEFT In Process Unspecified. EDMS 15:45 Hao López MD is Referral Physician. cp 17:11 Rayne Calhoun, RN is Primary Nurse. ss 17:11 Crutch training done. Derek wrap to left knee. ss 17:29 Patient has correct armband on for positive identification. Bed in low position. Call ss light in reach. 17:29 No provider procedures requiring assistance completed. Patient did not have IV access ss during this emergency room visit. Administered Medications: 14:53 Drug: Hydrocodone-Acetaminophen PO (7.5 mg-325 mg) 1 tabs PO once; RASS on ADMIN: jl7 Combtv4, Very Agttd3, Agttd2, Rstlss1, AlertClm0, Drwsy-1, Lt Sdtn-2, Mod Sdtn-3, Dp Sdtn-4, UnArsble-5 Route: PO; 17:11 Follow up: Response: No adverse reaction ss Medication: 17:29 VIS not applicable for this client. ss Outcome: 15:46 Discharge ordered by MD. cp 17:29 Discharged to home ambulatory, with crutches, with family, ss 17:29 Condition: good 17:29 Discharge instructions given to patient, family, Instructed on discharge instructions, follow up and referral plans. medication usage, Demonstrated understanding of instructions, follow-up care, medications, Prescriptions given X 1, 17:31 Patient left the ED. ss Signatures: Dispatcher [employer] EDMS Rayne Calhoun RN RN ss Riccardo Kidd PA PA cp Leal, Jahala, RN RN jl7 Isela Tolentino
[2024-06-24 17:41] VITALS: BP 115/75; O2SAT 100
== END 2024-06-24 17:31 | disposition home or self-care (01) ==
LOC: ER 13:35
DX: S80.02XA Contusion of left knee, initial encounter (principal); W01.10XA Fall on same level from slipping, tripping and stumbling with subsequent striking against unspecified object, initial encounter
CPT/HCPCS: 99283